=== PATIENT | male | born 1955 | race Caucasian/White ===

== ENCOUNTER 2017-08-20 12:04 | Inpatient (IN) | payer BC ==
[~2017-08-20] VITALS: Ht 167.6 cm; Wt 75.0 kg
[2017-08-20] MEDS ORDERED: SODIUM CHLORIDE 0.9% 1L BAG IV* STA (12:49)
[2017-08-20] MEDS ORDERED: ACETAMINOPHEN 325 MG TAB PO STA (12:49)
[2017-08-20] MEDS ORDERED: CEFEPIME 2GM/50 ML (PMX) 50 ML IVPB STA (12:49)
[2017-08-20] MEDS ORDERED: VANCOMYCIN 1 GM (PMX) 250 ML IVPB ONE (13:00)
[2017-08-20 13:32] LABS: BASOPHILS % 0.2 % (0.0-2.0); LYMPHOCYTES # 0.9 10^3/ul (0.8-2.9); MEAN CORPUSCULAR HEMOGLOBIN 29.6 pg (29.0-33.0); MEAN CORPUSCULAR HGB CONC 34.1 g/dl (32.0-37.0); MEAN PLATELET VOLUME 9.9 fl (7.4-10.4); MONOCYTE # 0.9 10^3/ul (0.3-0.9); MONOCYTES % 7.5 % (0.0-11.0); NEUTROPHIL # 10.3 10^3/ul (1.6-7.5); NEUTROPHILS % 84.7 % (39.0-77.0); PLATELET COUNT 298 10^3/UL (140-415); RED BLOOD COUNT 5.06 10^6/ul (4.70-6.10); RED CELL DISTRIBUTION WIDTH 13.7 % (11.5-14.5); WHITE BLOOD COUNT 12.2 10^3/ul (4.8-10.8)
--- NOTE | 2017-08-20 13:45 | RADRPT ---
PROCEDURE: XR Chest. CLINICAL INDICATION: chest pain, knee swelling TECHNIQUE: Single frontal view of the chest was obtained COMPARISON: None FINDINGS: The heart and mediastinum are within normal limits. The lungs are clear. There is no pleural effusion or pneumothorax. RPTAT: AA IMPRESSION: No acute disease. .Walker Oseguera MD, MD Date Time Electronically viewed and signed by .Walker Oseguera MD, on 08/20/2017 13:45 .S/
[2017-08-20 13:48] LABS: INR 1.13; PROTIME 14.5 Sec (12.2-14.2); PT RATIO 1.1
[2017-08-20 13:49] LABS: PARTIAL THROMBOPLASTIN TIME 33.2 Sec (25.0-35.0)
[2017-08-20 13:53] LABS: ALANINE AMINOTRANSFERASE 27 IU/L (13-69); ALBUMIN 4.6 g/dl (3.3-4.9); ALBUMIN/GLOBULIN RATIO 1.17; ALKALINE PHOSPHATASE 99 IU/L (42-121); ANION GAP 18 (8-16); ASPARTATE AMINO TRANSFERASE 20 IU/L (15-46); BILIRUBIN,INDIRECT 0.6 mg/dl (0-1.1); BILIRUBIN,TOTAL 0.6 mg/dl (0.2-1.3); BLOOD UREA NITROGEN 26 mg/dl (7-20); CALCIUM 9.6 mg/dl (8.4-10.2); CARBON DIOXIDE 25 mmol/L (21-31); CHLORIDE 103 mmol/L (97-110); CREATININE 1.21 mg/dl (0.61-1.24); GLUCOSE 135 mg/dl (70-220); POTASSIUM 3.7 mmol/L (3.5-5.1); SODIUM 142 mmol/L (135-144); TOTAL PROTEIN 8.5 g/dl (6.1-8.1)
[2017-08-20 14:03] LABS: TROPONIN-I < 0.012 ng/ml (0.00-0.12)
[2017-08-20] MEDS ORDERED: BENA40TA41 PO (14:11)
[2017-08-20] MEDS ORDERED: LISI10TA2 PO (14:12)
[2017-08-20] MEDS ORDERED: LIDOCAINE 1%/EPI 30 ML INJ INJ STA (14:26)
[2017-08-20 14:38] LABS: ADD UMIC YES; UR ASCORBIC ACID NEGATIVE (NEGATIVE); UR BILIRUBIN (Dip) NEGATIVE (NEGATIVE); UR BLOOD (Dip) 1+ mg/dL (NEGATIVE); UR CLARITY CLEAR (CLEAR); UR COLOR YELLOW (YELLOW); UR GLUCOSE (Dip) NEGATIVE (NEGATIVE); UR KETONES (Dip) NEGATIVE (NEGATIVE); UR LEUKOCYTE ESTERASE (Dip) NEGATIVE Leu/ul (NEGATIVE); UR MUCUS FEW /HPF (NONE SEEN); UR NITRITE (Dip) NEGATIVE (NEGATIVE); UR RBC 1 /HPF (0-5); UR SPECIFIC GRAVITY (Dip) 1.019 (1.003-1.030); UR TOTAL PROTEIN (Dip) NEGATIVE (NEGATIVE); UR UROBILINOGEN (Dip) NEGATIVE (NEGATIVE)
[2017-08-20 16:04] LABS: SYN FLD MN % 11.2 &
[2017-08-20 16:22] LABS: SYN FLD WBC 17343 /cmm (0-150)
[2017-08-20 16:23] LABS: SYN FLD CLARITY CLOUDY; SYN FLD CRYSTALS NO CRYSTALS SEEN (None seen); SYN FLD PMN % 88.8 % (0.0-25.0)
[2017-08-20 16:26] LABS: SYN FLD SOURCE RIGHT KNEE
[2017-08-20 16:27] LABS: SYN FLD COLOR YELLOW
[2017-08-20] MEDS ORDERED: ACETAMINOPHEN 325 MG TAB PO PRN (17:30)
[2017-08-20] MEDS ORDERED: ONDANSETRON 4 MG INJ IV PRN ×2 (17:30→18:00)
[2017-08-20] MEDS ORDERED: VANCOMYCIN IV PER PHARMACY XX SCH (18:00)
[2017-08-20] MEDS ORDERED: morphine 2 MG INJ IV PRN (18:00)
[2017-08-20] MEDS ORDERED: NACL 0.9% 3 ML SYG IV SCH (18:00)
--- NOTE | 2017-08-20 18:08 | HP ---
Date/Time of Note Date/Time of Note DATE: 08/20/17 TIME: 18:07 Assessment/Plan VTE Prophylaxis VTE Prophylaxis Intervention: SCD's Assessment/Plan Assessment/Plan 1. Sepsis secondary to ?right septic joint - Aspiration performed in ED and fluid showed 17K WBC - On Vanc and Cefepime, will deescalate based on cultures - Pain control - IV NSS - Ortho consulted from ED and aware of patient. Awaiting recommendations - When discussed getting an MRI of knee with patient to rule out osteomyelitis, he was concerned about the cost and wanted to wait until his son arrived to discuss with team - Blood cultures sent - Tylenol PRN for fevers 2. Right knee pain secondary to effusion vs septic joint - patient has history of arthritis as well - pain control - Ortho on board 3. HTN - Will continue home medications and adjust as needed 4. Leukocytosis - Secondary to #1 5. Gastroenteritis - Resolved - Will give zofran PRN, and PPI 6. Diet - Regular diet 7. Code Status - Full 8. GI - PPI 9. DVT - SCD 10. Disposition - Admit to med/surg. Await recommendations from Ortho >35 min spent at time of admission with patient. All labs and imaging reviewed and discussed with patient. HPI/ROS Admit Date/Time Admit Date/Time 08/20/17 Hx of Present Illness 62 yo M with PMH HTN and arthritis presented to ED after experiencing swelling of right knee for 4 days. Patient states about 1 week ago he went out to eat and developed abdominal pain and diarrhea. He denies any nausea or vomiting and has been taking Peptobismo for relief. About 2 days later he states he noticed his right knee was swollen with difficulty walking as well as bending down to put on his clothes. He denies any trauma to area and has not been overactive lately. Patient states he had associated subjective fevers but denies any falls, numbness/tingling down leg, dizziness, headache, chest pain, shortness of breath, or further episodes of diarrhea. ROS All 13 systems were reviewed and pertinent positives as per HPI. All others negative Constitutional: febrile, No chills, No diaphoresis, No disoriented, No nausea Eyes: no complaints ENT: no complaints Respiratory: No cough, No shortness of breath, No sputum, No wheezing Cardiovascular: No chest pain, No edema, No lightheadedness, No palpitations Gastrointestinal: pain, No blood, No constipation, No diarrhea, No nausea, No vomiting Genitourinary: no complaints Musculoskeletal: bone/joint pain (right knee swelling and pain), swelling Skin: No erythema, No laceration, No pruritis, No rash Neurologic: no complaints Endocrine: no complaints Lymphatic: no complaints Psychological: nl mood/affect Immunologic: no complaints PMH/Family/Social Past Medical History Medical History: hypertension Past Surgical History Past Surgical Hx: no surgical history Family History Significant Family History: no pertinent family hx Social History Alcohol Use: none Smoking Status: Never smoker Drug Use: none Exam/Review of Systems Vital Signs Vitals Vital Signs Date Time Temp Pulse Resp B/P Pulse Ox O2 Delivery O2 Flow Rate FiO2 08/20/17 17:07 100.0 85 18 168/87 96 Room Air Exam Constitutional: alert, oriented, well developed Psych: nl mood/affect Head: normocephalic Eyes: EOMI, PERRL ENMT: mucosa pink and moist, nl lips & teeth Neck: non-tender, supple Respiratory: clear to auscultation, No crackles/rales, No diminished breath sounds, No wheezing Cardiovascular: other (regular rhythm, tachycardia), No systolic murmur Gastrointestinal: bowel sounds, soft, No distended, No rebound or guarding, No tender Musculoskeletal: joint tenderness (right patella), swelling (right patella) Extremities: normal pulses, No clubbing, No cyanosis, No edema Neurological: LEATHER LEVELER II-XII intact, nl mental status, nl speech, No focal weakness Skin: nl turgor Lymph: nl lymph nodes Labs Result Diagram: 08/20/17 1311 08/20/17 1311 Medications Medications Home medications reviewed. Procedures Procedures PROCEDURE: XR Chest. CLINICAL INDICATION: chest pain, knee swelling TECHNIQUE: Single frontal view of the chest was obtained COMPARISON: None FINDINGS: The heart and mediastinum are within normal limits. The lungs are clear. There is no pleural effusion or pneumothorax. RPTAT: AA IMPRESSION: No acute disease. GINA CLEMENTS MD Aug 20, 2017 18:08
--- NOTE | 2017-08-20 18:37 | ERA ---
ER Documentation Chief Complaint Date/Time DATE: 08/20/17 TIME: 18:33 Chief Complaint right knee swelling/pain, total bodyache/malaise/LUCAS febriel/diaphoretic x1d HPI Patient is a 62-year-old male with gout, arthritis, and hypertension who presents with fever. He also has right-sided knee pain. He was seen in the office by Dr. Hirsch and was sent to the emergency department for evaluation and likely admission. He has fever, headache, and knee pain. He says that it started after eating tacos on Thursday and he also has abdominal pain and diarrhea. He has had no treatment yet today. Upon review of old medical records this is the patient's first visit to the emergency department. ROS All systems reviewed and are negative except as per history of present illness. Medications Home Meds Reported Medications Lisinopril* (Lisinopril*) 10 Mg Tablet, 10 MG PO DAILY, #30 TAB 08/20/17 Benazepril Hcl* (Benazepril Hcl*) 40 Mg Tablet, 40 MG PO DAILY, #30 TAB 08/20/17 Allergies Allergies: Coded Allergies: No Known Allergy (Unverified , 08/20/17) PMhx/Soc History of Surgery: Yes (hernia repair) Anesthesia Reaction: No Hx Neurological Disorder: No Hx Respiratory Disorders: No Hx Cardiac Disorders: Yes (HTN) Hx Psychiatric Problems: No Hx Miscellaneous Medical Probl: Yes (RA, GOUT) Hx Alcohol Use: No Hx Substance Use: No Hx Tobacco Use: No Smoking Status: Never smoker FmHx Family History: No diabetes Physical Exam Vitals Vital Signs Date Time Temp Pulse Resp B/P Pulse Ox O2 Delivery O2 Flow Rate FiO2 08/20/17 17:07 100.0 85 18 168/87 96 Room Air 08/20/17 12:20 101.9 115 22 166/88 96 Physical Exam Const: Moderate distress secondary to pain Head: Atraumatic Eyes: Normal Conjunctiva ENT: Normal External Ears, Nose and Mouth. Neck: Full range of motion..~ No meningismus. Resp: Clear to auscultation bilaterally Cardio: Regular rate and rhythm, no murmurs Abd: Soft, non tender, non distended. Normal bowel sounds Skin: No petechiae or rashes Back: No midline or flank tenderness Ext: Right knee pain with effusion, extreme tenderness to palpation and range of motion passively Neur: Awake and alert Psych: Normal Mood and Affect Result Diagram: 08/20/17 1311 08/20/17 1311 Results 24 hrs Laboratory Tests Test 08/20/17 13:11 08/20/17 14:20 08/20/17 14:58 08/20/17 16:49 White Blood Count 12.210^3/ul Red Blood Count 5.0610^6/ul Hemoglobin 15.0g/dl Hematocrit 44.0% Mean Corpuscular Volume 87.0fl Mean Corpuscular Hemoglobin 29.6pg Mean Corpuscular Hemoglobin Concent 34.1g/dl Red Cell Distribution Width 13.7% Platelet Count 51270^3/UL Mean Platelet Volume 9.9fl Neutrophils % 84.7% Lymphocytes % 7.0% Monocytes % 7.5% Eosinophils % 0.0% Basophils % 0.2% Nucleated Red Blood Cells % 0.0/100WBC Neutrophils # 10.310^3/ul Lymphocytes # 0.910^3/ul Monocytes # 0.910^3/ul Eosinophils # 0.010^3/ul Basophils # 0.010^3/ul Nucleated Red Blood Cells # 0.010^3/ul Prothrombin Time 14.5Sec Prothrombin Time Ratio 1.1 INR International Normalized Ratio 1.13 Activated Partial Thromboplast Time 33.2Sec Sodium Level 142mmol/L Potassium Level 3.7mmol/L Chloride Level 103mmol/L Carbon Dioxide Level 25mmol/L Anion Gap 18 Blood Urea Nitrogen 26mg/dl Creatinine 1.21mg/dl Glucose Level 135mg/dl Lactic Acid Level 1.9mmol/L 1.4mmol/L 1.2mmol/L Calcium Level 9.6mg/dl Total Bilirubin 0.6mg/dl Direct Bilirubin 0.00mg/dl Indirect Bilirubin 0.6mg/dl Aspartate Amino Transf (AST/SGOT) 20IU/L Alanine Aminotransferase (ALT/SGPT) 27IU/L Alkaline Phosphatase 99IU/L Troponin I < 0.012ng/ml Total Protein 8.5g/dl Albumin 4.6g/dl Globulin 3.90g/dl Albumin/Globulin Ratio 1.17 Urine Color YELLOW Urine Clarity CLEAR Urine pH 5.0 Urine Specific [place] 1.019 Urine Ketones NEGATIVEmg/dL Urine Nitrite NEGATIVEmg/dL Urine Bilirubin NEGATIVEmg/dL Urine Urobilinogen NEGATIVEmg/dL Urine Leukocyte Esterase NEGATIVELeu/ul Urine Microscopic RBC 1/HPF Urine Microscopic WBC 1/HPF Urine Mucus FEW/HPF Urine Hemoglobin 1+mg/dL Urine Glucose NEGATIVEmg/dL Urine Total Protein NEGATIVEmg/dl Synovial Fluid Source RIGHT KNEE Synovial Fluid Color YELLOW Synovial Fluid Appearance CLOUDY Synovial Fluid Volume 20.0mL Synovial Fluid WBC 96042/cmm Synovial Fluid Polynuclear WBCs % 88.8% Synovial Fluid Mononuclear WBCs % 11.2& Synovial Fluid Crystals NO CRYSTALS SEEN Current Medications Medications (Trade) Dose Ordered Sig/Jeffy Route PRN Reason Start Time Stop Time Status Last Admin Dose Admin Sodium Chloride (NS) 2,330 ml BOLUS OVER 2 HOURS STAT IV* 08/20/17 12:49 08/20/17 12:50 DC 08/20/17 13:51 Acetaminophen 650 mg 650 mg ONCE STAT PO 08/20/17 12:49 08/20/17 12:50 DC 08/20/17 13:50 Cefepime HCl 50 ml @ 100 mls/hr ONCE STAT IVPB 08/20/17 12:49 08/20/17 13:18 DC 08/20/17 13:49 Vancomycin HCl (Vancocin) 250 ml @ 125 mls/hr ONCE ONCE IVPB 08/20/17 13:00 08/20/17 14:59 DC 08/20/17 15:03 Lidocaine/ Epinephrine (Xylocaine 1%/ Epi (Pf)) 30 ml ONCE STAT INJ 08/20/17 14:26 08/20/17 14:27 DC Ondansetron HCl (Zofran Inj) 4 mg BRIDGE ORDER PRN IV NAUSEA AND/OR VOMITING 08/20/17 17:30 08/21/17 17:29 Acetaminophen (Tylenol Tab) 650 mg ER BRIDGE PRN PO MILD PAIN/FEVER 08/20/17 17:30 08/21/17 17:29 Benazepril HCl 40 mg 40 mg DAILY PO 08/21/17 09:00 UNV Sodium Chloride (NS) 1,000 ml @ 100 mls/hr Q10H IV 08/20/17 18:00 UNV IV Flush (NS 3 ml) 3 ml PER PROTOCOL IV 08/20/17 18:00 UNV Ondansetron HCl (Zofran Inj) 4 mg Q6H PRN IV NAUSEA AND/OR VOMITING 08/20/17 18:00 UNV Acetaminophen (Tylenol Tab) 650 mg Q6H PRN PO PAIN LEVEL 1-3 OR FEVER 08/20/17 18:00 UNV Acetaminophen/ Hydrocodone Bitart ([place] (5/325)) 1 tab Q6H PRN PO MODERATE PAIN LEVEL 4-6 08/20/17 18:00 UNV Morphine Sulfate (morphine) 2 mg Q4H PRN IV SEVERE PAIN LEVEL 7-10 08/20/17 18:00 UNV Pantoprazole (Protonix Tab) 40 mg DAILY@06 PO 08/21/17 06:00 UNV Vancomycin HCl VANCOMYCIN PER PHARMACY PER PROTOCOL XX 08/20/17 18:00 UNV Cefepime HCl (Maxipime 1gm/50 ml (Pmx)) 50 ml @ 100 mls/hr Q12 IVPB 08/20/17 21:00 UNV Procedures/MDM EKG read by me: Rate/Rhythm: Sinus tachycardia at a rate of 103 Intervals: Normal Impression: Sinus tachycardia without ischemia Chest x-ray negative for pneumonia per radiology. Knee joint aspiration: I prepped and draped the patient in a sterile fashion. I used 2 mL of lidocaine with epinephrine for local anesthetic control. I then used an 18-gauge needle and was able to withdraw 40 mL of whitish fluid from the right knee. The patient tolerated the entire procedure. There was no blood loss. Fluid was sent to the lab for studies. Admit MDM: Patient's infectious symptoms have not stabilized and the patient is at risk of rapid decompensation. The patient will be admitted for careful hydration, antibiotic therapy, and infectious source control. Severe Sepsis criteria: Infectious source: Right knee joint infection End organ damage indicated by: No end organ damage at this time Sepsis Management: Time of recognition of sepsis: Upon arrival Within 3 hours of recognition: Blood cultures x 2 before broad-spectrum antibiotics: Yes 30 ml/kg NS bolus Completed Initial lactate normal Repeat lactate normal Time of recognition of septic shock: No septic shock Septic Shock Assessment: Any lactic acid > 4.0 No Persistent hypotension (SBP < 90 or 40 mmHg drop, MAP < 65) despite 30 mL/kg IV fluid bolus No Volume Re-assessment for Septic Shock (post 30 ml/kg bolus): Septic shock at this time Persistent Hypotension Treatment: Comfort care No Central line Not Required Vasopressor started Not required I considered further perfusion assessment with CVP measurement, SCVO2, bedside ultrasound volume assessment, passive leg raise, trial of further fluid bolus. And proceeded with 30 ml/kg fluid bolus of NSS, broad spectrum antibiotics, and admission. Accepting Care Team Current data and ongoing care discussed. Admitting Physician: Dr. Kelly from the panel team Library Services Dean(s): Dr. Norwood from orthopedic surgery Outstanding Data: Culture results Critical Care: Critical care time 35 minutes excluding all billable procedures Emergent fluid management while maintaining close respiratory support. Provision of immediate and broad-spectrum antibiotic therapy. Simultaneous assessment for possible sources in order to direct targeted therapy. Consideration for invasive and chemical support to prevent cardiopulmonary collapse. Departure Diagnosis: Primary Impression: Sepsis Qualified Code: A41.9 - Sepsis, due to unspecified organism Additional Impression: Septic joint Qualified Code: M00.9 - Pyogenic arthritis of right knee joint, due to unspecified organism Condition: PATRIC Lerner MD Aug 20, 2017 18:37
[2017-08-20] MEDS: ACETAMINOPHEN 325 MG TAB PO PRN (19:24)
[2017-08-20 19:25] VITALS: TEMP 100.6
[2017-08-20 20:09] VITALS: Ht 167.6 cm; Wt 75.0 kg
[2017-08-20] MEDS ORDERED: VANCOMYCIN 500MG/NS (PMX) 100 ML IVPB SCH (20:30)
[2017-08-20] MEDS: SOD CHLORIDE 0.9% 1,000 ML IV SCH (20:48)
[2017-08-20] MEDS: HYDROCODONE/APAP (5/325) TAB PO PRN (20:49)
[2017-08-20] MEDS: hydrALAzine 20 MG INJ IV PRN (20:49)
[2017-08-20 21:46] VITALS: BP 176/97; RESP 16
[2017-08-20 23:00] VITALS: BP 156/70
[2017-08-20] MEDS: CEFEPIME 1GM/50 ML (PMX) 50 ML IVPB SCH (23:36)
[2017-08-21] VITALS (9 sets, daily range): BP systolic 150–178; BP diastolic 75–92; PULSE 79–94; RESP 16–20
[2017-08-21] MEDS: hydrALAzine 20 MG INJ IV PRN ×3 (02:57→21:03)
[2017-08-21] MEDS: ACETAMINOPHEN 325 MG TAB PO PRN ×3 (04:12→22:48)
[2017-08-21] MEDS: VANCOMYCIN 1 GM in NS 250 ML IVPB SCH ×2 (04:12→16:52)
[2017-08-21] MEDS: PANTOPRAZOLE (EC) 40 MG TAB PO SCH (05:56)
[2017-08-21 06:02] LABS: BASOPHILS % 0.2 % (0.0-2.0); HEMATOCRIT 38.5 % (42.0-52.0); LYMPHOCYTES # 0.8 10^3/ul (0.8-2.9); MEAN CORPUSCULAR HEMOGLOBIN 29.5 pg (29.0-33.0); MEAN CORPUSCULAR HGB CONC 33.8 g/dl (32.0-37.0); MEAN CORPUSCULAR VOLUME 87.3 fl (82.0-101.0); MEAN PLATELET VOLUME 10.1 fl (7.4-10.4); MONOCYTE # 0.8 10^3/ul (0.3-0.9); NEUTROPHIL # 7.9 10^3/ul (1.6-7.5); NEUTROPHILS % 83.4 % (39.0-77.0); PLATELET COUNT 254 10^3/UL (140-415); RED BLOOD COUNT 4.41 10^6/ul (4.70-6.10); RED CELL DISTRIBUTION WIDTH 13.3 % (11.5-14.5); WHITE BLOOD COUNT 9.5 10^3/ul (4.8-10.8)
[2017-08-21 06:40] LABS: CALCIUM 8.8 mg/dl (8.4-10.2); CREATININE 0.84 mg/dl (0.61-1.24); MAGNESIUM 1.7 mg/dl (1.7-2.5); POTASSIUM 3.5 mmol/L (3.5-5.1)
[2017-08-21] MEDS: SOD CHLORIDE 0.9% 1,000 ML IV SCH ×3 (07:00→21:03)
[2017-08-21] MEDS: CEFEPIME 1GM/50 ML (PMX) 50 ML IVPB SCH ×2 (08:51→21:02)
[2017-08-21] MEDS: BENAZEPRIL 40 MG TAB PO SCH (08:52)
[2017-08-21] MEDS ORDERED: POTASSIUM CHLORIDE (SR) 20 MEQ TAB PO STA (10:34)
[2017-08-21] MEDS ORDERED: SOD CHLORIDE 0.9% 1,000 ML IV SCH (11:00)
[2017-08-21] MEDS: HYDROCODONE/APAP (5/325) TAB PO PRN (12:55)
[2017-08-21] MEDS ORDERED: BETAMET NA PHOS/AC(6 MG/ML) 5ML INJ INJ ONE (15:30)
[2017-08-21] MEDS ORDERED: BUPIVACAINE 0.5%/EPI (SDV) 30 ML INJ INJ ONE (15:30)
--- NOTE | 2017-08-21 15:38 | PN ---
Date/Time of Note Date/Time of Note DATE: 08/21/17 TIME: 15:38 Assessment/Plan VTE Prophylaxis VTE Prophylaxis Intervention: SCD's Lines/Catheters IV Catheter Type (from Nrsg): Peripheral IV Assessment/Plan Assessment/Plan 1. Septic arthritis of the right knee - Ortho on board and appreciate consultation - repeat aspiration performed and injected knee with Celestone and Marcaine - Antibiotics on board - MRI ordered to assess for Osteomyelitis 2. Recurrent gouty arthritis involving the right knee - Uric acid elevated and will give Colchicine 1.2mg followed by 0.6mg in 1 hour - Will start on Colchicine 0.6 mg BID tmrw am 3. SIRS secondary to #1 - Blood cultures negative to date - Will continue monitoring vitals - Antibiotics on board - Tylenol PRN for fevers - Lactic acid normal 4. HTN - Will continue home medications and adjust as needed 5. Gastroenteritis - Resolved - Will give zofran PRN, and PPI Subjective 24 Hr Interval Summary Free Text/Dictation Patient still spiking fevers but states feeling okay. Still experiencing discomfort in right knee but still has relief after fluid aspiration. Patient agreed to MRI today and spoke with son who is agreeable to plan. No acute overnight events. Exam/Review of Systems Vital Signs Vitals Vital Signs Date Time Temp Pulse Resp B/P Pulse Ox O2 Delivery O2 Flow Rate FiO2 08/21/17 15:37 100.7 87 160/75 08/21/17 15:21 20 96 08/20/17 19:25 Room Air Intake and Output 08/20/17 08/20/17 08/21/17 15:00 23:00 07:00 Intake Total 100 ml 1350 ml Output Total 1100 ml Balance 100 ml 250 ml Exam Constitutional: alert, oriented, well developed Eyes: EOMI, PERRL ENMT: mucosa pink and moist, nl lips & teeth Neck: non-tender, supple Respiratory: clear to auscultation, No crackles/rales, No diminished breath sounds, No wheezing Cardiovascular: oregular rhythm, tachycardia, No systolic murmur Gastrointestinal: bowel sounds, soft, No distended, No rebound or guarding, No tender Musculoskeletal: joint tenderness right patella, swelling right patella Extremities: normal pulses, No clubbing, No cyanosis, No edema Neurological: TELEPHONE OPERATOR II-XII intact, nl mental status, nl speech, No focal weakness Results Result Diagram: 08/21/17 0425 08/21/17 0425 Results 24 hrs Laboratory Tests Test 08/20/17 16:49 08/21/17 04:25 Lactic Acid Level 1.2 White Blood Count 9.5 # Red Blood Count 4.41 L Hemoglobin 13.0 L Hematocrit 38.5 L Mean Corpuscular Volume 87.3 Mean Corpuscular Hemoglobin 29.5 Mean Corpuscular Hemoglobin Concent 33.8 Red Cell Distribution Width 13.3 Platelet Count 254 Mean Platelet Volume 10.1 Neutrophils % 83.4 H Lymphocytes % 8.0 L Monocytes % 8.0 Eosinophils % 0.0 Basophils % 0.2 Nucleated Red Blood Cells % 0.0 Neutrophils # 7.9 H Lymphocytes # 0.8 Monocytes # 0.8 Eosinophils # 0.0 Basophils # 0.0 Nucleated Red Blood Cells # 0.0 Sodium Level 138 Potassium Level 3.5 Chloride Level 103 Carbon Dioxide Level 25 Anion Gap 14 Blood Urea Nitrogen 17 # Creatinine 0.84 Glucose Level 114 Calcium Level 8.8 Phosphorus Level 3.0 Magnesium Level 1.7 Medications Medications Current Medications Benazepril HCl (Lotensin) 40 mg DAILY PO Last administered on 08/21/17 08:52; Admin Dose 40 MG; Start 08/21/17 at 09:00 Ondansetron HCl (Zofran Inj) 4 mg Q6H PRN IV NAUSEA AND/OR VOMITING; Start 08/20/17 at 18:00 Acetaminophen (Tylenol Tab) 650 mg Q6H PRN PO PAIN LEVEL 1-3 OR FEVER Last administered on 08/21/17 14:44; Admin Dose 650 MG; Start 08/20/17 at 18:00 Acetaminophen/ Hydrocodone Bitart ([place] (5/325)) 1 tab Q6H PRN PO MODERATE PAIN LEVEL 4-6 Last administered on 08/21/17 12:55; Admin Dose 1 TAB; Start at 18:00 Morphine Sulfate (morphine) 2 mg Q4H PRN IV SEVERE PAIN LEVEL 7-10; Start 08/20 at 18:00 Pantoprazole 40 mg 40 mg DAILY@06 PO Last administered on 08/21/17 05:56; Admin Dose 40 MG; Start 08/21/17 at 06:00 Cefepime HCl 50 ml @ 100 mls/hr Q12 IVPB Last administered on 08/21/17 08:51 ; Admin Dose 100 MLS/HR; Start 08/20/17 at 23:00 Vancomycin HCl (Vancocin) 250 ml @ 125 mls/hr Q12H IVPB Last administered on 08/21/17 04:12; Admin Dose 125 MLS/HR; Start 08/21/17 at 05:00 Hydralazine HCl (Apresoline) 10 mg Q4H PRN IV ELEVATED BLOOD PRESSURE Last administered on 08/21/17 14:50; Admin Dose 10 MG; Start 08/20/17 at 20:30 Influenza Virus Vaccine 0.5 ml 0.5 ml ONCE ONCE IM* ; Start 08/21/17 at 20:00; Stop 08/21/17 at 20:01 Sodium Chloride (NS) 1,000 ml @ 100 mls/hr Q10H IV Last administered on 11:09; Admin Dose 100 MLS/HR; Start 08/21/17 at 11:30 Miscellaneous Information (*Rx Drug Level Order Reminder*) 1 ONCE ONCE XX ; Start 08/22/17 at 04:00; Stop 08/22/17 at 04:01 GINA CLEMENTS MD Aug 21, 2017 15:38
--- NOTE | 2017-08-21 16:43 | CONS ---
DATE OF ADMISSION: 08/20/2017 DATE OF CONSULTATION: 08/21/2017 HISTORY OF PRESENT ILLNESS: The patient is a 62-year-old male who was admitted through the emergency room on the August 20, 2017, when he was sent to the emergency room by his primary care physician for further evaluation and care. According to the patient, he developed symptoms of flu about 5 days ago with low- grade fever and body ache. He also developed painful swelling, mostly on the right knee, which was similar to his previous gouty arthritis attack. According to the patient, he was diagnosed as having gouty arthritis involving his knee, first time about 2 years ago, and later on, second time, his pain involving his right knee is similar to his previous gouty attack involving the knee. At the time of his ER visit, he was febrile with a temperature of 101.9 Fahrenheit, an he was showing a mild leukocytosis with a WBC count of 12.2. Aspiration of the right knee was done in the ER, and the aspirants failed to show uric acid crystals, but the WBC count was 17,343. Gram stain or culture and sensitivity on the aspirated knee joint fluid were not carried out At the time of my evaluation on August 21, 2017, he was still showing a low-grade temperature of 99.6; however, repeated CBC did not show any leukocytosis. There was a considerable effusion involving the right knee; however, there are no signs of the usual pyogenic process, such as acute tenderness or redness or increased warmth. Range of motion of the right knee was limited because of the effusion. No radiologic studies were available for my review on the x-rays. DIAGNOSIS/IMPRESSION: Painful effusion of the right knee. DIFFERENTIAL DIAGNOSES: Should include: 1. Recurrent gouty arthritis involving the right knee. 2. Septic arthritis of the right knee. TREATMENT PLAN: 1. Repeated aspiration of the right knee. If the aspirants are not grossly purulent, his knee can be injected with Celestone and Marcaine, and this was done. The aspirants were also sent to the lab for Gram stain and culture and sensitivity test. 2. If his symptomatic improvement is not satisfactory, and if the Gram stain or culture and sensitivity of the aspirant are positive, then arthroscopic irrigation and debridement should be considered. Dictated By: In Sheela Norwood MD /abigail/yon /Document#: [id number]
--- NOTE | 2017-08-21 18:17 | RADRPT ---
PROCEDURE: XR Knees. CLINICAL INDICATION: Bilateral knee pain. TECHNIQUE: Total of six views. Frontal, oblique, and lateral views of both knees. COMPARISON: No prior study is available for comparison. FINDINGS: There is no fracture or dislocation. There is a large right knee joint effusion. There is no left knee joint effusion. There are degenerative changes of both knees with osteophytes arising from all 3 joint compartment m argins bilaterally. There is left knee medial joint compartment narrowing. There is no lytic or blastic lesion. There is no radiopaque foreign body. IMPRESSION: 1. Large right knee joint effusion. 2. Mild degenerative changes of the right knee. 3. Moderate degenerative changes of the left knee. 3. No acute fracture. RPTAT: QQ .Jordan Flores MD, Date Time Electronically viewed and signed by .Jordan Flores MD, on 08/21/2017 18:17 .R/
[2017-08-21] MEDS ORDERED: COLCHICINE 0.6 MG TAB PO ONE ×2 (19:00→20:00)
[2017-08-21] MEDS ORDERED: INFLUENZA VIRUS VACCINE 0.5 ML SYG IM* ONE (20:00)
[2017-08-22] MEDS: PANTOPRAZOLE (EC) 40 MG TAB PO SCH (05:28)
[2017-08-22] MEDS: HYDROCODONE/APAP (5/325) TAB PO PRN ×2 (05:34→06:40)
[2017-08-22 06:36] LABS: BASOPHILS % 0.1 % (0.0-2.0); HEMATOCRIT 37.5 % (42.0-52.0); HEMOGLOBIN 12.8 g/dl (14.0-18.0); LYMPHOCYTES # 0.6 10^3/ul (0.8-2.9); LYMPHOCYTES % 6.3 % (15.0-51.0); MEAN CORPUSCULAR HEMOGLOBIN 29.7 pg (29.0-33.0); MEAN CORPUSCULAR HGB CONC 34.1 g/dl (32.0-37.0); MEAN PLATELET VOLUME 10.2 fl (7.4-10.4); MONOCYTE # 0.4 10^3/ul (0.3-0.9); MONOCYTES % 3.7 % (0.0-11.0); NEUTROPHIL # 8.5 10^3/ul (1.6-7.5); NEUTROPHILS % 89.7 % (39.0-77.0); PLATELET COUNT 249 10^3/UL (140-415); RED BLOOD COUNT 4.31 10^6/ul (4.70-6.10); RED CELL DISTRIBUTION WIDTH 13.3 % (11.5-14.5); WHITE BLOOD COUNT 9.5 10^3/ul (4.8-10.8)
[2017-08-22] MEDS: SOD CHLORIDE 0.9% 1,000 ML IV SCH ×2 (06:53→17:17)
[2017-08-22 07:09] LABS: ALBUMIN 3.2 g/dl (3.3-4.9); CALCIUM 8.7 mg/dl (8.4-10.2); CREATININE 0.73 mg/dl (0.61-1.24); MAGNESIUM 2.1 mg/dl (1.7-2.5); PHOSPHORUS 3.2 mg/dl (2.5-4.9); POTASSIUM 4.3 mmol/L (3.5-5.1)
[2017-08-22 08:00] VITALS: BP 159/90; RESP 20
[2017-08-22] MEDS: VANCOMYCIN 1 GM in NS 250 ML IVPB SCH (08:56)
[2017-08-22] MEDS: BENAZEPRIL 40 MG TAB PO SCH (08:56)
[2017-08-22] MEDS: COLCHICINE 0.6 MG TAB PO SCH ×2 (08:58→20:32)
[2017-08-22] MEDS: CEFEPIME 1GM/50 ML (PMX) 50 ML IVPB SCH ×2 (09:59→20:32)
[2017-08-22 14:00] VITALS: BP 169/90; RESP 19
--- NOTE | 2017-08-22 15:27 | PN ---
Date/Time of Note Date/Time of Note DATE: 08/22/17 TIME: 15:21 Assessment/Plan VTE Prophylaxis VTE Prophylaxis Intervention: SCD's Lines/Catheters IV Catheter Type (from Nrs): Peripheral IV Assessment/Plan Assessment/Plan 1. Septic arthritis of the right knee - Ortho on board and appreciate consultation - repeat aspiration performed and injected knee with Celestone and Marcaine - Antibiotics on board and awaiting final results of cultures. Currently no growth to date - Will cancel MRI since showing clinical improvement 2. Recurrent gouty arthritis involving the right knee - Patient feeling better after initiation of cochicine - Will continue on Colchicine 0.6 mg BID 3. SIRS secondary to #1 - Blood cultures negative to date - Will continue monitoring vitals - Antibiotics on board - Tylenol PRN for fevers - Lactic acid normal 4. HTN - Will continue home medications and adjust as needed 5. Gastroenteritis - Resolved - Will give zofran PRN, and PPI 6. Disposition - If patient remains afebrile for 24 hours and no new findings on MRI, will d/c home - Discussed patient with son at bedside and all questions answered. Subjective 24 Hr Interval Summary Free Text/Dictation Patient states hes feeling more relief in his right knee after repeat tap of synovial fluid by Dr. Norwood. Still feeling unsteady on his feet and had to hold onto a chair this am while showering. No acute overnight events and no new complaints. Exam/Review of Systems Vital Signs Vitals Vital Signs Date Time Temp Pulse Resp B/P Pulse Ox O2 Delivery O2 Flow Rate FiO2 08/22/17 08:00 98.2 90 20 159/90 96 08/20/17 19:25 Room Air Intake and Output 08/21/17 08/21/17 08/22/17 15:00 23:00 07:00 Intake Total 450 ml 2080 ml 1600 ml Output Total 1300 ml 800 ml Balance 450 ml 780 ml 800 ml Exam Constitutional: alert, oriented, well developed Eyes: EOMI, PERRL ENMT: mucosa pink and moist, nl lips & teeth Neck: non-tender, supple Respiratory: clear to auscultation, No crackles/rales, No diminished breath sounds, No wheezing Cardiovascular: regular rhythm, tachycardia, No systolic murmur Gastrointestinal: bowel sounds, soft, No distended, No rebound or guarding, No tender Musculoskeletal: mild joint tenderness right patella, swelling right patella with improvement. warmth but no erythema Extremities: normal pulses, No clubbing, No cyanosis, No edema Neurological: BEHAVIORAL HEALTH THERAPIST II-XII intact, nl mental status, nl speech, No focal weakness Results Result Diagram: 08/22/1744408/22/17444 Results 24 hrs Laboratory Tests Test 08/22/17 04:21 08/22/17 04:45 Vancomycin Level Trough 6.8 L White Blood Count 9.5 Red Blood Count 4.31 L Hemoglobin 12.8 L Hematocrit 37.5 L Mean Corpuscular Volume 87.0 Mean Corpuscular Hemoglobin 29.7 Mean Corpuscular Hemoglobin Concent 34.1 Red Cell Distribution Width 13.3 Platelet Count 249 Mean Platelet Volume 10.2 Neutrophils % 89.7 H Lymphocytes % 6.3 L Monocytes % 3.7 Eosinophils % 0.0 Basophils % 0.1 Nucleated Red Blood Cells % 0.0 Neutrophils # 8.5 H Lymphocytes # 0.6 L Monocytes # 0.4 Eosinophils # 0.0 Basophils # 0.0 Nucleated Red Blood Cells # 0.0 Sodium Level 138 Potassium Level 4.3 Chloride Level 105 Carbon Dioxide Level 22 Anion Gap 15 Blood Urea Nitrogen 16 Creatinine 0.73 Glucose Level 145 Calcium Level 8.7 Phosphorus Level 3.2 Magnesium Level 2.1 Albumin 3.2 #L Medications Medications Current Medications Benazepril HCl (Lotensin) 40 mg DAILY PO Last administered on 08/22/17 08:56; Admin Dose 40 MG; Start 08/21/17 at 09:00 Ondansetron HCl (Zofran Inj) 4 mg Q6H PRN IV NAUSEA AND/OR VOMITING; Start 08/20/17 at 18:00 Acetaminophen (Tylenol Tab) 650 mg Q6H PRN PO PAIN LEVEL 1-3 OR FEVER Last administered on 08/21/17 22:48; Admin Dose 650 MG; Start 08/20/17 at 18:00 Acetaminophen/ Hydrocodone Bitart ([place] (5/325)) 1 tab Q6H PRN PO MODERATE PAIN LEVEL 4-6 Last administered on 08/22/17 05:34; Admin Dose 1 TAB; Start at 18:00 Morphine Sulfate (morphine) 2 mg Q4H PRN IV SEVERE PAIN LEVEL 7-10; Start 08/20 at 18:00 Pantoprazole 40 mg 40 mg DAILY@06 PO Last administered on 08/22/17 05:28; Admin Dose 40 MG; Start 08/21/17 at 06:00 Cefepime HCl (Maxipime 1gm/50 ml (Pmx)) 50 ml @ 100 mls/hr Q12 IVPB Last administered on 08/22/17 09:59; Admin Dose 100 MLS/HR; Start 08/20/17 at 23:00 Hydralazine HCl 10 mg 10 mg Q4H PRN IV ELEVATED BLOOD PRESSURE Last administered on 08/21/17 21:03; Admin Dose 10 MG; Start 08/20/17 at 20:30 Sodium Chloride (NS) 1,000 ml @ 100 mls/hr Q10H IV Last administered on 06:53; Admin Dose 100 MLS/HR; Start 08/21/17 at 11:30 Colchicine 0.6 mg 0.6 mg BID PO Last administered on 08/22/17 08:58; Admin Dose 0.6 MG; Start 08/22/17 at 09:00 Vancomycin HCl/ Sodium Chloride (Vancocin/NS) 250 ml @ 83.333 mls/ hr Q12H IVPB ; Start 08/22/17 at 17:00 GINA CLEMENTS MD Aug 22, 2017 15:26
[2017-08-22] MEDS: hydrALAzine 20 MG INJ IV PRN (15:41)
[2017-08-22] MEDS: VANCOMYCIN 1.5 GM in SOD CHLORIDE 0.9% 250 ML IVPB SCH (17:17)
[2017-08-22 17:19] VITALS: BP 143/87
[2017-08-22 20:00] VITALS: BP 157/82; RESP 18
[2017-08-23] MEDS: SOD CHLORIDE 0.9% 1,000 ML IV SCH (01:31)
[2017-08-23 02:00] VITALS: BP 154/87; RESP 19
[2017-08-23] MEDS: VANCOMYCIN 1.5 GM in SOD CHLORIDE 0.9% 250 ML IVPB SCH (05:02)
[2017-08-23] MEDS: PANTOPRAZOLE (EC) 40 MG TAB PO SCH (05:06)
[2017-08-23 07:01] LABS: BASOPHILS % 0.1 % (0.0-2.0); HEMATOCRIT 35.5 % (42.0-52.0); LYMPHOCYTES # 1.1 10^3/ul (0.8-2.9); LYMPHOCYTES % 9.9 % (15.0-51.0); MEAN CORPUSCULAR HEMOGLOBIN 29.5 pg (29.0-33.0); MEAN CORPUSCULAR HGB CONC 33.8 g/dl (32.0-37.0); MEAN CORPUSCULAR VOLUME 87.2 fl (82.0-101.0); MEAN PLATELET VOLUME 10.2 fl (7.4-10.4); MONOCYTE # 0.8 10^3/ul (0.3-0.9); MONOCYTES % 7.9 % (0.0-11.0); NEUTROPHIL # 8.7 10^3/ul (1.6-7.5); NEUTROPHILS % 81.8 % (39.0-77.0); PLATELET COUNT 287 10^3/UL (140-415); RED BLOOD COUNT 4.07 10^6/ul (4.70-6.10); RED CELL DISTRIBUTION WIDTH 13.4 % (11.5-14.5); WHITE BLOOD COUNT 10.7 10^3/ul (4.8-10.8)
[2017-08-23 07:21] LABS: ALBUMIN 3.2 g/dl (3.3-4.9); CALCIUM 8.3 mg/dl (8.4-10.2); CREATININE 0.76 mg/dl (0.61-1.24); MAGNESIUM 2.1 mg/dl (1.7-2.5); PHOSPHORUS 3.2 mg/dl (2.5-4.9); POTASSIUM 4.2 mmol/L (3.5-5.1)
[2017-08-23 08:00] VITALS: BP 134/85; RESP 20
[2017-08-23] MEDS: CEFEPIME 1GM/50 ML (PMX) 50 ML IVPB SCH (08:41)
[2017-08-23] MEDS: COLCHICINE 0.6 MG TAB PO SCH (08:42)
[2017-08-23] MEDS: BENAZEPRIL 40 MG TAB PO SCH (08:45)
[2017-08-23] MEDS ORDERED: POLYETHYLENE GLYCOL 17 GM PACKET PO SCH (09:00)
[2017-08-23] MEDS ORDERED: DOCUSATE SODIUM 100 MG CAP PO SCH (09:00)
--- NOTE | 2017-08-23 12:15 | PN ---
Date/Time of Note Date/Time of Note DATE: 08/23/17 TIME: 12:06 Assessment/Plan VTE Prophylaxis VTE Prophylaxis Intervention: SCD's Lines/Catheters IV Catheter Type (from Nrsg): Peripheral IV Assessment/Plan Assessment/Plan 1. Septic arthritis of the right knee - Ortho on board and appreciate consultation. repeat aspiration performed and injected knee with Celestone and Marcaine with significant improvement - No growth on fluid cultures - remains afebrile with nL WBC 2. Recurrent gouty arthritis involving the right knee - Patient feeling better after initiation of cochicine - Will continue on Colchicine 0.6 mg BID 3. SIRS secondary to #1 - Blood cultures negative to date - Will continue monitoring vitals - Antibiotics on board - Tylenol PRN for fevers - Lactic acid normal 4. HTN - Will continue home medications and adjust as needed 5. Gastroenteritis - Resolved - Will give zofran PRN, and PPI 6. Disposition - Patient medically stable for discharge home today. Subjective 24 Hr Interval Summary Free Text/Dictation Patient doing well and states swelling and discomfort in right knee has improved. Still unsteady on feet and needing crutches to get around. Offered FWW but prefers crutches. No acute overnight events or new complaints. Exam/Review of Systems Vital Signs Vitals Vital Signs Date Time Temp Pulse Resp B/P Pulse Ox O2 Delivery O2 Flow Rate FiO2 08/23/17 08:00 98.8 67 20 134/85 97 08/20/17 19:25 Room Air Intake and Output 08/22/17 08/22/17 08/23/17 15:00 23:00 07:00 Intake Total 50 ml 775 ml 1950 ml Balance 50 ml 775 ml 1950 ml Exam Constitutional: alert, oriented, well developed Eyes: EOMI, PERRL Neck: non-tender, supple Respiratory: clear to auscultation, No crackles/rales, No diminished breath sounds, No wheezing Cardiovascular: regular rhythm, tachycardia, No systolic murmur Gastrointestinal: bowel sounds, soft, No distended, No rebound or guarding, No tender Musculoskeletal: improving tenderness right patella with minimal swelling. no erythema Extremities: normal pulses, No clubbing, No cyanosis, No edema Neurological: SALES SERVICE ASSISTANT II-XII intact, nl mental status, nl speech, No focal weakness Results Result Diagram: 08/23/1736 10/8/17 0536 Results 24 hrs Laboratory Tests Test 08/23/17 05:36 White Blood Count 10.7 Red Blood Count 4.07 L Hemoglobin 12.0 L Hematocrit 35.5 L Mean Corpuscular Volume 87.2 Mean Corpuscular Hemoglobin 29.5 Mean Corpuscular Hemoglobin Concent 33.8 Red Cell Distribution Width 13.4 Platelet Count 287 Mean Platelet Volume 10.2 Neutrophils % 81.8 H Lymphocytes % 9.9 L Monocytes % 7.9 Eosinophils % 0.0 Basophils % 0.1 Nucleated Red Blood Cells % 0.0 Neutrophils # 8.7 H Lymphocytes # 1.1 Monocytes # 0.8 Eosinophils # 0.0 Basophils # 0.0 Nucleated Red Blood Cells # 0.0 Sodium Level 137 Potassium Level 4.2 Chloride Level 107 Carbon Dioxide Level 25 Anion Gap 9 # Blood Urea Nitrogen 22 H Creatinine 0.76 Glucose Level 123 Calcium Level 8.3 L Phosphorus Level 3.2 Magnesium Level 2.1 Albumin 3.2 L Medications Medications Current Medications Benazepril HCl (Lotensin) 40 mg DAILY PO Last administered on 08/23/17 08:45; Admin Dose 40 MG; Start 08/21/17 at 09:00 Ondansetron HCl (Zofran Inj) 4 mg Q6H PRN IV NAUSEA AND/OR VOMITING; Start 08/20/17 at 18:00 Acetaminophen (Tylenol Tab) 650 mg Q6H PRN PO PAIN LEVEL 1-3 OR FEVER Last administered on 08/21/17 22:48; Admin Dose 650 MG; Start 08/20/17 at 18:00 Acetaminophen/ Hydrocodone Bitart ([place] (5/325)) 1 tab Q6H PRN PO MODERATE PAIN LEVEL 4-6 Last administered on 08/22/17 05:34; Admin Dose 1 TAB; Start at 18:00 Morphine Sulfate (morphine) 2 mg Q4H PRN IV SEVERE PAIN LEVEL 7-10; Start 08/20 at 18:00 Pantoprazole 40 mg 40 mg DAILY@06 PO Last administered on 08/23/17 05:06; Admin Dose 40 MG; Start 08/21/17 at 06:00 Cefepime HCl (Maxipime 1gm/50 ml (Pmx)) 50 ml @ 100 mls/hr Q12 IVPB Last administered on 08/23/17 08:41; Admin Dose 100 MLS/HR; Start 08/20/17 at 23:00 Hydralazine HCl 10 mg 10 mg Q4H PRN IV ELEVATED BLOOD PRESSURE Last administered on 08/22/17 15:41; Admin Dose 10 MG; Start 08/20/17 at 20:30 Sodium Chloride (NS) 1,000 ml @ 100 mls/hr Q10H IV Last administered on 01:31; Admin Dose 100 MLS/HR; Start 08/21/17 at 11:30 Colchicine 0.6 mg 0.6 mg BID PO Last administered on 08/23/17 08:42; Admin Dose 0.6 MG; Start 08/22/17 at 09:00 Vancomycin HCl/ Sodium Chloride (Vancocin/NS) 250 ml @ 83.333 mls/ hr Q12H IVPB Last administered on 08/23/17 05:02; Admin Dose 83.333 MLS/HR; Start 08/22/17 at 17:00 Docusate Sodium (Colace) 100 mg BID PO Last administered on 08/23/17 08:44; Admin Dose 100 MG; Start 08/23/17 at 09:00 Polyethylene Glycol (Miralax) 17 gm DAILY PO Last administered on 08/23/17 08: 44; Admin Dose 17 GM; Start 08/23/17 at 09:00 Miscellaneous Information (*Rx Drug Level Order Reminder*) VANCOMYCIN TROUGH AT 1600 ONCE ONCE XX ; Start 08/24/17 at 16:00; Stop 08/24/17 at 16:01 GINA CLEMENTS MD Aug 23, 2017 12:15
[2017-08-23] MEDS ORDERED: COLC0.6T6 PO (12:20)
--- NOTE | 2017-08-23 12:27 | PDOCDIS ---
Discharge Instructions DIAGNOSIS Discharge Diagnosis 1. Recurrent gouty arthritis involving the right knee 2. Reactive arthritis of the right knee 3. Hypertension CONDITION Patient Condition: Good HOME CARE INSTRUCTIONS: Diet Instructions: Low Fat /CholesterolYour diet recommendation is: low purine rich foods ACTIVITY: Activity Restrictions: Slowly Increase Activity FOLLOW UP/APPOINTMENTS Follow-up Plan 1. Take Colchicine 0.6mg twice daily to prevent recurrence of gout 2. Make sure to eat foods that are not rich in Purines 3. Follow up with your Primary care physician in 7 days 4. Slowly increase your physical activity to avoid aggrevating the right knee 5. Take Tylenol 650mg every 6-8 hours as need for relief of arthritis pain 6. If experiencing muscle aches can use Naproxen 500mg twice daily 7. If symptoms worsen, return to the ED GINA CLEMENTS MD Aug 23, 2017 12:27
--- NOTE | 2017-08-23 12:35 | DS ---
Date/Time of Note Date/Time of Note DATE: 08/23/17 TIME: 12:34 Discharge Summary Admission/Discharge Info Admit Date/Time Aug 20, 2017 at 17:11 Discharge Date/Time Discharge Diagnosis 1. Recurrent gouty arthritis involving the right knee 2. Reactive arthritis of the right knee 3. Hypertension Patient Condition: Good Consults Orthopedic Surgery- Dr. Norwood Procedures 1. Synovial fluid removal from Right knee 2. Injection of Celestone and Marcaine Hx of Present Illness 62 yo M with PMH HTN and arthritis presented to ED after experiencing swelling of right knee for 4 days. Patient states about 1 week ago he went out to eat and developed abdominal pain and diarrhea. He denies any nausea or vomiting and has been taking Peptobismo for relief. About 2 days later he states he noticed his right knee was swollen with difficulty walking as well as bending down to put on his clothes. He denies any trauma to area and has not been overactive lately. Patient states he had associated subjective fevers but denies any falls, numbness/tingling down leg, dizziness, headache, chest pain, shortness of breath, or further episodes of diarrhea. Hospital Course In the ED fluid was drained from his right knee and he was started on antibiotics since had an elevated WBC and fever. Knee Xray showed large right knee joint effusion. Mild degenerative changes of the right knee. Moderate degenerative changes of the left knee. No acute fracture. Orthopedic surgery was consulted and performed a repeat aspiration and injected knee with Celestone and Marcaine with significant improvement. Patient was found to have an elevated uric acid and per son patient has history of gout. Patient was started on Colchicine with improvement in overall stability and mobility. Patient was experiencing persistent fevers which was most likely secondary to the reactive arthritis/gout present and resolved after colchicine was initiated. Blood cultures were negative and no growth was seen from synovial fluid. Patient remained afebrile for >24 hours with normalized WBC. He was offered a front wheel walker but preferred to use his crutches to get around. Patient was discharged home in good condition with instructions to continue medication and follow up with PCP in 1 week. Home Meds Active Scripts Colchicine* (Colcrys*) 0.6 Mg Tablet, 0.6 MG PO BID for 30 Days, #60 TAB Prov:GINA CLEMENTS MD 08/23/17 Reported Medications Benazepril Hcl* (Benazepril Hcl*) 40 Mg Tablet, 40 MG PO DAILY, #30 TAB 08/20/17 Discontinued Reported Medications Lisinopril* (Lisinopril*) 10 Mg Tablet, 10 MG PO DAILY, #30 TAB 08/20/17 Follow-up Plan 1. Take Colchicine 0.6mg twice daily to prevent recurrence of gout 2. Make sure to eat foods that are not rich in Purines 3. Follow up with your Primary care physician in 7 days 4. Slowly increase your physical activity to avoid aggrevating the right knee 5. Take Tylenol 650mg every 6-8 hours as need for relief of arthritis pain 6. If experiencing muscle aches can use Naproxen 500mg twice daily 7. If symptoms worsen, return to the ED Primary Care Provider Carlos Storey MD Time spent on discharge: > 30 minutes Pending Labs Laboratory Tests Test 08/23/17 05:36 White Blood Count 10.710^3/ul (4.8-10.8) Red Blood Count 4.0710^6/ul (4.70-6.10) Hemoglobin 12.0g/dl (14.0-18.0) Hematocrit 35.5% (42.0-52.0) Mean Corpuscular Volume 87.2fl (82.0-101.0) Mean Corpuscular Hemoglobin 29.5pg (29.0-33.0) Mean Corpuscular Hemoglobin Concent 33.8g/dl (32.0-37.0) Red Cell Distribution Width 13.4% (11.5-14.5) Platelet Count 01493^3/UL (140-415) Mean Platelet Volume 10.2fl (7.4-10.4) Neutrophils % 81.8% (39.0-77.0) Lymphocytes % 9.9% (15.0-51.0) Monocytes % 7.9% (0.0-11.0) Eosinophils % 0.0% (0.0-7.0) Basophils % 0.1% (0.0-2.0) Nucleated Red Blood Cells % 0.0/100WBC (0.0-0.0) Neutrophils # 8.710^3/ul (1.6-7.5) Lymphocytes # 1.110^3/ul (0.8-2.9) Monocytes # 0.810^3/ul (0.3-0.9) Eosinophils # 0.010^3/ul (0.0-0.5) Basophils # 0.010^3/ul (0.0-0.1) Nucleated Red Blood Cells # 0.010^3/ul (0.0-0.0) Sodium Level 137mmol/L (135-144) Potassium Level 4.2mmol/L (3.5-5.1) Chloride Level 107mmol/L (97-110) Carbon Dioxide Level 25mmol/L (21-31) Anion Gap 9 (8-16) Blood Urea Nitrogen 22mg/dl (7-20) Creatinine 0.76mg/dl (0.61-1.24) Glucose Level 123mg/dl (70-220) Calcium Level 8.3mg/dl (8.4-10.2) Phosphorus Level 3.2mg/dl (2.5-4.9) Magnesium Level 2.1mg/dl (1.7-2.5) Albumin 3.2g/dl (3.3-4.9) GINA CLEMENTS MD Aug 23, 2017 12:34
== END 2017-08-23 15:35 | disposition home or self-care (01) | DRG 872 ==
LOC: E/R 12:04 → PP2 17:11
PROVIDERS: ADMIT Internal Medicine; ATTEND Internal Medicine
PROC: 0S9C3ZX Drainage of Right Knee Joint, Percutaneous Approach, Diagnostic (ICD-10-PCS; principal; 2017-08-20)
PROC: 0S9C3ZX Drainage of Right Knee Joint, Percutaneous Approach, Diagnostic (ICD-10-PCS; 2017-08-21)
PROC: 3E0U3BZ Introduction of Anesthetic Agent into Joints, Percutaneous Approach (ICD-10-PCS; 2017-08-21)
PROC: 3E0U33Z Introduction of Anti-inflammatory into Joints, Percutaneous Approach (ICD-10-PCS; 2017-08-21)
DX: A41.9 Sepsis, unspecified organism (principal); M00.9 Pyogenic arthritis, unspecified; I10 Essential (primary) hypertension; M25.461 Effusion, right knee; K52.9 Noninfective gastroenteritis and colitis, unspecified; M1A.9XX0 Chronic gout, unspecified, without tophus (tophi)
CPT/HCPCS: 36415; 71010; 80048; 80053; 80069; 80202; 81001; 83605; 83735; 84100; 84484; 84560; 85025; 85610; 85730; 87040; 87070; 87075; 87086; 89060; 90686; 93005; 96374; 96375; J0360; J0692; J0702; J3370; J7030; J7050